=== PATIENT | female | born 1980 | race Caucasian/White ===

== ENCOUNTER 2017-11-30 15:13 | Emergency (ER) | payer OTHER ==
[~2017-11-30] VITALS: Ht 160 cm; Wt 68.0 kg
[~2017-11-30 15:13] MED LIST: ADVIL LIQUI-GE200 MG; PENICILLIN V P500 MG PO; PROMS25 WY RECTAL; TRINATE TABLET1 TAB PO; ZOFRAN ODT4 MG PO
[2017-11-30 18:35] VITALS: BP 99/58
== END 2017-11-30 18:38 | disposition home or self-care (01) ==
LOC: ER 15:13
DX: O46.8X1 Other antepartum hemorrhage, first trimester (principal); Z3A.14 14 weeks gestation of pregnancy